=== PATIENT | female | born 1960 | race Caucasian/White ===

== ENCOUNTER 2017-11-08 07:14 | Emergency (ER) | payer OTHER ==
[2017-11-08 07:38] LABS: BASOPHILS 0.3 % (0-2); EOSINOPHILS 4.9 % (0-7); HEMATOCRIT 40.5 % (36.0-48.0); HEMOGLOBIN 13.2 g/dL (12-16); IMMATURE GRANULOCYTES 0.1 % (0-5); LYMPHOCYTES 38.9 % (15-50); MCH 27.7 pg (26.0-34.0); MCHC 32.6 g/dL (31.0-37.0); MCV 84.9 fL (80.0-100.0); MEAN PLATELET VOLUME 10.6 fL (7.4-10.4); MONOCYTES 9.2 % (2-11); NEUTROPHILS 46.6 % (40-80); PLATELET COUNT 176 10x3/uL (130-400); RBC 4.77 10x6/uL (4.00-5.40); RDW 13.8 % (11.5-14.5); WBC 7.8 10x3/uL (4.8-10.8)
[2017-11-08 07:55] LABS: ALBUMIN 3.8 g/dL (3.4-5.0); ALKALINE PHOSPHATASE 68 U/L (46-116); ALT (SGPT) 20 U/L (10-68); BILIRUBIN - TOTAL 0.36 mg/dL (0.2-1.3); CALC OSMOLALITY 276 mosm/kg (275-300); CALCIUM 9.2 mg/dL (8.5-10.1); CARBON DIOXIDE 25.6 mmol/L (21.0-32.0); CHLORIDE - SERUM 104 mmol/L (98-107); CREATININE - SERUM 0.9 mg/dL (0.6-1.3); GLUCOSE 76 mg/dL (74-106); POTASSIUM - SERUM 3.9 mmol/L (3.5-5.1); PROTEIN - SERUM 6.9 g/dL (6.4-8.2); SODIUM 139 mmol/L (136-145); UREA NITROGEN 12 mg/dL (7-18); eGFR NON AFRICAN AMERICAN 69 mL/min (90-120)
[2017-11-08 08:06] LABS: CREATINE KINASE 63 UL (21-215)
[2017-11-08 08:20] LABS: TROPONIN-I < 0.017 ng/mL (0.000-0.060)
== END 2017-11-08 12:58 | disposition home or self-care (01) ==
LOC: D.ER 07:14
PROVIDERS: Emergency Medicine
DX: R07.9 Chest pain, unspecified (principal)